=== PATIENT | female | born 1960 | race Caucasian/White ===

== ENCOUNTER 2018-11-09 21:47 | Emergency (ER) | payer MEDICAID ==
[~2018-11-09] VITALS: Ht 139.7 cm; Wt 63.0 kg
[~2018-11-09 21:47] MED LIST: NITR100C7 PO
[2018-11-09 21:53] VITALS: BP 126/76
--- NOTE | 2018-11-09 21:58 | NUR ---
PT AMBULATED TO ED RAY
--- NOTE | 2018-11-09 22:16 | NUR ---
PT AMBULATED TO BED 3
--- NOTE | 2018-11-09 22:25 | NUR ---
58 Y/O F PRESENTED TO ED WITH C/O URINARY BURNING X1 WEEK. PER PT "SEEN BY THE DOCTOR ON MONDAY AND I TOLD THEM I HAVE AN UTI BUT THEY DIDN'T MEDICAITON." C/O LOWER ABDOMINAL PAIN. 8 PAIN, PAIN DOES NOT RADIATE. PT HAS DIFFCULTY AMBULATING DUE TO PAIN. PT SELF MEDICATED WITH IBUPROFEN AT 1900. ABDOMEN SOFT AND TENDER TO PALPATION. PT DENIES HEMATURIA OR FLANK PAIN. FAMILY AT BEDSIDE. WILL CONTINUE TO MONITOR.
[2018-11-09 22:48] LABS: APPEARANCE,URINE CLEAR (CLEAR); BILIRUBIN,URINE NEGATIVE (NEGATIVE); BLOOD, URINE 3+ (NEGATIVE); COLOR,URINE YELLOW (YELLOW); LEUKOCYTE ESTERASE ,URINE 2+ (NEGATIVE); NITRITE, URINE NEGATIVE (NEGATIVE); UGLUCOSE NEGATIVE (NEGATIVE)
[2018-11-09 23:13] LABS: RBC,URINE 50-80 /HPF (0-5); WBC,URINE 20-60 /HPF (0-5)
[2018-11-09 23:40] VITALS: BP 124/72
[2018-11-10] MEDS ORDERED: KETOROLAC 60 MG/2 ML VIAL IM ONE (00:25)
--- NOTE | 2018-11-10 00:46 | NUR ---
Patient discharged with v/s stable. Written and verbal after care instructions given and explained. Patient alert, oriented and verbalized understanding of instructions. Ambulatory with steady gait. All questions addressed prior to discharge. ID band removed. Patient advised to follow up with PMD. Rx of cipro, motrin, and pyridum given. Patient educated on indication of medication including possible reaction and side effects. Opportunity to ask questions provided and answered.
== END 2018-11-10 00:46 | disposition home or self-care (01) ==
LOC: MED 21:47
DX: N39.0 Urinary tract infection, site not specified (principal); Z79.2 Long term (current) use of antibiotics
CPT/HCPCS: 81001; 81025; 87086; 96372; 99283; J1885